=== PATIENT | male | born 1990 | race Caucasian/White ===

== ENCOUNTER 2021-11-07 18:00 | Inpatient (IN) | payer MEDICAID, SELFPAY ==
[2021-11-07 17:58] VITALS: BP 129/81; PULSE 97; RESP 17; TEMP 36.6; O2SAT 97
[2021-11-07 18:06] VITALS: BMI 23.0
--- NOTE | 2021-11-07 18:52 | PC.NURSE ---
ADMISSION NOTE ADMITTED FROM [facility]. VIA EMS, ARRIVED AT 1809 VIA STRETCHER. 96 HOUR HOLD IN PAPER WORK, STATES ITS VALID FOR 5 DAYS FROM THE 8TH OF THIS MONTH. PT. HAS A HISTORY OF SCHIZOPHRENIA AND HAS NOT BEEN TAKING ANY MEDICATIONS. HAS AN ALLERGY TO HALDOL. MOTHER BROUGHT HIM TO ER DUE TO ERRATIC/BIZARRE BEHAVIOR, YELLING AND CUSSING HIS STEP DAD. FAMILY REPORTS THEY FOUND A ROPE IN HIS ROOM HANGING AND SINCE HE HAS MADE SUICIDAL STATEMENTS IN THE PAST THEY FELT HE NEEDED EVALUATED. PT DENIES SI/HI AND AVH AT THIS TIME. STAFF REPORT HE HAS BEEN TALKING TO UNSEEN OTHERS. UPON ASSESSMENT PT IS VERY DISORGANIZED, SPEECH DELAYED AND FLIGHT OF IDEAS. UDS WAS POSITIVE FOR THC. HE DOES REPORT HE SMOKES MARIJUANA DAILY AND DRINKS EVERY NOW AND THEN COCCYX AREA PRESENTS WITH RASH WITH DRIED SCATTERD SCABS THROUGHOUT. PT STATES I'VE HAD IT SINCE I TOOK MY COVID SHOT. RECEIVED J AND J BUT UNSURE WHEN HE RECEIVED. PT IS UNABLE TO GIVE ACCURATE INFORMATION AT THIS TIME.
[2021-11-07 21:42] VITALS: BP 111/68; PULSE 96; RESP 18; TEMP 36.6; O2SAT 97
[2021-11-08 06:00] VITALS: BP 99/62; PULSE 85; RESP 16; TEMP 36.4; O2SAT 97
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
[2021-11-08] MEDS: paliperidone ER 3 mg Tablet PO (13:46)
[2021-11-08] MEDS: OLANZapine 5 mg ODT PO (18:30)
--- NOTE | 2021-11-08 18:31 | PC.NURSE ---
PRN ZYPREXA ZYDIS 5 MG GIVEN PO PER PT C/O PSYCHOSIS. PT APPEARS TO BE HALLUCINATING, LAUGHING INAPPROPRIATELY, WAVING ARMS AT TIMES TO THINGS THAT ARENT THERE. WILL SUPERVISOR STATEMENT CLERKS HIS DOORWAY HOLDING PAPER AND CALLING OUT NAMES AT RANDOM. STAFF REDIRECTS OFTEN. WILL CONT TO MONITOR
[2021-11-08 20:30] VITALS: BP 135/91; PULSE 134; RESP 17; TEMP 36.6; O2SAT 99
[2021-11-08] MEDS: hyDROXYzine 25 mg Capsule 50 MG PO (20:35)
[2021-11-08] MEDS: trazodone 50 mg Tablet PO (23:18)
[2021-11-09 06:00] VITALS: BP 108/71; PULSE 91; RESP 18; O2SAT 98
[2021-11-09] MEDS: paliperidone ER 3 mg Tablet PO ×2 (08:14→12:11)
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
[2021-11-09] MEDS: acetaminophen 325 mg Tablet 650 MG PO (12:22)
--- NOTE | 2021-11-09 13:50 | PC.NURSE ---
Patient verbalized relief from previous foot pain. Pain score 3.
[2021-11-09 14:00] VITALS: BP 114/67; PULSE 101; RESP 16; TEMP 36.6; O2SAT 98
--- NOTE | 2021-11-09 14:34 | PC.SOCIAL ---
Patient attended a portion of group. His contributions were incoherent and were more related to word association than the group discussion.
[2021-11-09 21:12] VITALS: BP 124/81; PULSE 76; RESP 16; TEMP 36.6; O2SAT 97
--- NOTE | 2021-11-09 21:26 | PC.NURSE ---
During assesmment patient stated he has not had BM and could not state when the last time he had a BM. Bowel sounds active x4, slightly distended but still soft, patient did not complain of tenderness on palpation. Offered patient stool softener and patient stated he would not take it. Patient was behaving bizarrely, staring past me while talking. When asked how he was sleeping, patient stated, I made a deal when I was young to sleep standing up. Its not uncomfortable when you are in a net cocoon. If I'm awake I'm sitting down. Then patient went to nurses station to wait on his meds, and began jumping and laughing. Patient self isolates to room except for meals and med times.
[2021-11-09] MEDS: trazodone 50 mg Tablet PO (22:07)
[2021-11-10 06:00] VITALS: BP 105/63; PULSE 100; RESP 18; TEMP 36.4; O2SAT 95
[2021-11-10] MEDS: paliperidone ER 6 mg Tablet PO (08:41)
--- NOTE | 2021-11-10 13:23 | P.NPUPN_ITS ---
Subjective NPU Subjective: He is minimally improved. There might be a slight reduction in the delay it takes for him to speak. He still seems bewildered most of the time. He says that he is sleeping well. He says that the auditory hallucinations have stopped. He says that they come and go. I asked him again about his statement yesterday about losing everything. He still could not explain any further. He had his second day of Invega 6 mg today. He denies any side effects. Mental Status Exam MSE Comments: This is a 31-year-old appropriate weight male who appears approximately his stated age and is in no distress. He was cooperative with the evaluation but had difficulty answering questions. There was a long delay sometimes and he was inconsistent with his answers. He appeared to be attending to internal stimuli. He has a full tinajero. His eye contact was good. psychomotor activity mildly increased. Speech is usually only 1 or 2 word answers to questions with no spontaneous speech. Answers are quite delayed at times. Alert, oriented Attention and concentration seem to be diminished. Memory is intact Mood is good. Affect is blunted and mildly anxious Thought process difficult to discern. There is no spontaneous speech. He answers questions with 1 or 2 words and significant delay. Thought content: Denies auditory hallucinations or visual hallucinations. No delusions or paranoia are noted. No current suicidal ideation. He denies homicidal ideation. Fund of knowledge is probably decreased. Insight and judgment appear to be poor. Impulse control is fair. Cognition: Patient Appearance: Appropriate and Disheveled/Poor Hygiene Ability to Follow Directions: Good Patient Orientation (long list): Person, Place, Time and Name Comprehension Ability: Understands Concepts Hallucination Type: None Delusion Description: Not Present Thought Process: Confused, Flight of Ideas and Incoherent Affect: Affect Description: Appropriate Behavior: Patient Behavior: Appropriate Speech Pattern: Appropriate Vitals/I&O/Wt Last Vital Signs Temp 97.5 F L 11/10/21 06:00 Pulse 100 11/10/21 06:00 Resp 18 11/10/21 06:00 BP 105/63 11/10/21 06:00 Pulse Ox 95 11/10/21 06:00 A&P Assessment and plan (1) Schizophrenia, chronic condition: Status: Acute (2) Intellectual disability: Status: Acute Plan This is a 31-year-old male who apparently has had symptoms of schizophrenia for the last 4 years and has responded well to Invega Plan: 1. We will increase Invega to 6 mg and gradually increase as tolerated. we will try and talk him into taking the Invega injection. 2. Continue every 15 minute checks for safety. 3. Encourage individual, group and milieu therapies. 4. Encourage sober living treatment after discharge at the highest level of care to which he is willing to commit. 5. We will monitor for safety for himself in the community prior to discharge. Involuntary Hold Information 96 Hour Hold: 96 Hour Involuntary Admission: Yes Attestations NPU Medical Necessity Statement*: Inpatient hospitalization is medically necessary and the clinically appropriate intervention at this time. We will initiate medications and make changes as indicated. Coding Level of Care Code Acute Aluminum Boat Inspector for Damaso Mckeon Diagnoses Schizophrenia, chronic condition F20.9 Intellectual disability F79
[2021-11-10 13:54] VITALS: BP 105/63; PULSE 100; RESP 18; TEMP 36.4; O2SAT 95
[2021-11-10 20:44] VITALS: BP 135/80; PULSE 112; RESP 19; TEMP 36.6; O2SAT 96
[2021-11-10] MEDS: trazodone 50 mg Tablet PO (21:48)
[2021-11-11 06:00] VITALS: BP 117/76; PULSE 75; RESP 16; TEMP 36.7; O2SAT 96
[2021-11-11] MEDS: paliperidone ER 6 mg Tablet PO (08:56)
[2021-11-11 14:00] VITALS: BP 145/83; PULSE 81; RESP 18; TEMP 36.6; O2SAT 100
--- NOTE | 2021-11-11 15:50 | P.NPUPN_ITS ---
Subjective NPU Subjective: He is doing significantly better. He says he is feeling better. He is having significantly less difficulty talking. He was previously talking in just 1 or 2 words at a time. Now he cannot say a sentence. His responses are much less delayed. He was told again that his mother felt that he did well when he took the Invega injection. He said that he took that for about 2 or 3 years but he was living in [place] and he was not around her and she did not have any way to know whether he was doing well with that or not. He does not want to take the injection. She also did say that he was pretty good about taking pills. He says that he does not like to take pills either. Mental Status Exam MSE Comments: This is a 31-year-old appropriate weight male who appears approximately his stated age and is in no distress. He he is still not very talkative but can say sentences now. There was a delay sometimes when answering questions but better than it was. He appeared to be attending to internal stimuli. He has a full tinajero. His eye contact was good. psychomotor activity mildly increased. Speech is usually only 1 or 2 word answers to questions but sometimes he will say a sentence. There was some spontaneous speech. Answers are less delayed than they were.. Alert, oriented Attention and concentration seem to be diminished. Memory is intact Mood is good. Affect is blunted and mildly anxious Thought process is more goal directed Thought content: Denies auditory hallucinations or visual hallucinations. No delusions or paranoia are noted. No current suicidal ideation. He denies homicidal ideation. Fund of knowledge is probably decreased. Insight and judgment appear to be poor. Impulse control is fair. Cognition: Patient Appearance: Appears Younger than Age and Disheveled/Poor Hygiene Ability to Follow Directions: Good Patient Orientation (long list): Person, Place, Time and Name Comprehension Ability: Understands Concepts Hallucination Type: None Delusion Description: Not Present Thought Process: Confused, Flight of Ideas and Incoherent Affect: Affect Description: Flat Behavior: Patient Behavior: Appropriate Speech Pattern: Appropriate Vitals/I&O/Wt Last Vital Signs Temp 97.9 F 11/11/21 14:00 Pulse 81 11/11/21 14:00 Resp 18 11/11/21 14:00 BP 145/83 11/11/21 14:00 Pulse Ox 100 11/11/21 14:00 A&P Assessment and plan (1) Schizophrenia, chronic condition: Status: Acute (2) Intellectual disability: Status: Acute Plan This is a 31-year-old male who apparently has had symptoms of schizophrenia for the last 4 years and has responded well to Invega Plan: 1. We will increase Invega to 6 mg and gradually increase as tolerated. we will try and talk him into taking the Invega injection. 2. Continue every 15 minute checks for safety. 3. Encourage individual, group and milieu therapies. 4. Encourage sober living treatment after discharge at the highest level of care to which he is willing to commit. 5. We will monitor for safety for himself in the community prior to discharge. Involuntary Hold Information 96 Hour Hold: 96 Hour Involuntary Admission: Yes Attestations NPU Medical Necessity Statement*: Inpatient hospitalization is medically necessary and the clinically appropriate intervention at this time. We will initiate medications and make changes as indicated. Coding Level of Care Code Acute Medical Assisting Program Director for Damaso Mckeon Diagnoses Schizophrenia, chronic condition F20.9 Intellectual disability F79
[2021-11-11 20:43] VITALS: BP 128/83; PULSE 97; RESP 17; TEMP 36.7; O2SAT 98
[2021-11-11] MEDS: trazodone 50 mg Tablet PO (20:45)
[2021-11-12 06:00] VITALS: BP 114/71; PULSE 69; RESP 16; TEMP 36.4; O2SAT 98
[2021-11-12] MEDS: paliperidone ER 6 mg Tablet PO (09:15)
--- NOTE | 2021-11-12 10:53 | P.NPUPN_ITS ---
Subjective NPU Subjective: He said that he is about the same as yesterday. He said that the Invega is much better than the Haldol that he was on before. He said that the doctor should have known that Invega was better for him. He said that that was part of the [place]-project which she has mentioned before. He was doing a dance in the hallway earlier today and seemed to be fairly happy. Mental Status Exam MSE Comments: This is a 31-year-old appropriate weight male who appears approximately his stated age and is in no distress. He he is still not very talkative but can say sentences now. There was a delay sometimes when answering questions but better than it was. He appeared to be attending to internal stimuli. He has a full tinajero. His eye contact was good. psychomotor activity mildly increased. Speech is usually only 1 or 2 word answers to questions but sometimes he will say a sentence. There was some spontaneous speech. Answers are less delayed than they were.. Alert, oriented Attention and concentration seem to be diminished. Memory is intact Mood is good. Affect is blunted and mildly anxious Thought process is more goal directed Thought content: Denies auditory hallucinations or visual hallucinations. No delusions or paranoia are noted. No current suicidal ideation. He denies homicidal ideation. Fund of knowledge is probably decreased. Insight and judgment appear to be poor. Impulse control is fair. Cognition: Patient Appearance: Disheveled/Poor Hygiene Ability to Follow Directions: Good Patient Orientation (long list): Person, Place, Time, Name, Month and Year Comprehension Ability: Understands Concepts Hallucination Type: None Delusion Description: Not Present Thought Process: Circumstantial and Loose Associations Affect: Affect Description: Calm Behavior: Patient Behavior: Appropriate and Cooperative Speech Pattern: Delayed and Difficulty Finding Words Vitals/I&O/Wt Last Vital Signs Temp 97.6 F 11/12/21 06:00 Pulse 69 11/12/21 06:00 Resp 16 11/12/21 06:00 BP 114/71 11/12/21 06:00 Pulse Ox 98 11/12/21 06:00 A&P Assessment and plan (1) Schizophrenia, chronic condition: Status: Acute (2) Intellectual disability: Status: Acute Plan This is a 31-year-old male who apparently has had symptoms of schizophrenia for the last 4 years and has responded well to Invega Plan: 1. We will increase Invega to 9 mg tomorrow. we will try and talk him into taking the Invega injection. 2. Continue every 15 minute checks for safety. 3. Encourage individual, group and milieu therapies. 4. Encourage sober living treatment after discharge at the highest level of care to which he is willing to commit. 5. We will monitor for safety for himself in the community prior to discharge. Involuntary Hold Information 96 Hour Hold: 96 Hour Involuntary Admission: Yes Attestations NPU Medical Necessity Statement*: Inpatient hospitalization is medically necessary and the clinically appropriate intervention at this time. We will initiate medications and make changes as indicated. Coding Level of Care Code Acute Student Life Vice President for Damaso Fwd Diagnoses Schizophrenia, chronic condition F20.9 Intellectual disability F79
[2021-11-12 14:00] VITALS: BP 123/69; PULSE 90; RESP 20; TEMP 36.6; O2SAT 99
[2021-11-12] MEDS: trazodone 50 mg Tablet PO ×2 (20:05→21:24)
[2021-11-12 20:42] VITALS: BP 126/83; PULSE 97; RESP 18; O2SAT 97
[2021-11-13 06:00] VITALS: BP 116/81; PULSE 68; RESP 18; O2SAT 97
--- NOTE | 2021-11-13 07:20 | W.PM.NPUPNS ---
Subjective NPU Subjective: He was found in bed but awake at 7:15 in the morning. He seemed to be in pain as he has tried to set up. He said that is normal for him. The nurses said he slept well but he says that it was not that good. Even at this time in the morning he was able to make sentences and somewhat talkative. I asked him if he was going to live with his mother when he left here. He hesitated and said I think so. I asked where else he would go and he hesitated and said wherever it is . Mental Status Exam MSE Comments: This is a 31-year-old appropriate weight male who appears approximately his stated age and is in no distress. He he is still not very talkative but can say sentences now. There was a delay sometimes when answering questions but better than it was. He appeared to be attending to internal stimuli. He appears to be bewildered at times. He has a full tinajero. His eye contact was good. psychomotor activity normal. Speech is usually only 1 or 2 word answers to questions but sometimes he will say a sentence. There was some spontaneous speech. Answers are less delayed than they were.. Alert, oriented Attention and concentration seem to be diminished. Memory is intact Mood is good. Affect is blunted and mildly anxious Thought process is more goal directed Thought content: Denies auditory hallucinations or visual hallucinations. No delusions or paranoia are noted. No current suicidal ideation. He denies homicidal ideation. Fund of knowledge is probably decreased. Insight and judgment appear to be poor. Impulse control is fair. Cognition: Patient Appearance: Disheveled/Poor Hygiene Ability to Follow Directions: Good Patient Orientation (long list): Person, Place, Time, Name, Month and Year Comprehension Ability: Understands Concepts Hallucination Type: None Delusion Description: Not Present Thought Process: Disorganized Affect: Affect Description: Calm Behavior: Patient Behavior: Appropriate Speech Pattern: Delayed and Difficulty Finding Words Vitals/I&O/Wt Last Vital Signs Temp 98 F 11/12/21 14:00 Pulse 68 11/13/21 06:00 Resp 18 11/13/21 06:00 BP 116/81 11/13/21 06:00 Pulse Ox 97 11/13/21 06:00 A&P Assessment and plan (1) Schizophrenia, chronic condition: Status: Acute (2) Intellectual disability: Status: Acute Plan This is a 31-year-old male who apparently has had symptoms of schizophrenia for the last 4 years and has responded well to Invega Plan: 1. We will increase Invega to 9 mg tomorrow. we will try and talk him into taking the Invega injection. 2. Continue every 15 minute checks for safety. 3. Encourage individual, group and milieu therapies. 4. Encourage sober living treatment after discharge at the highest level of care to which he is willing to commit. 5. We will monitor for safety for himself in the community prior to discharge. Involuntary Hold Information 96 Hour Hold: 96 Hour Involuntary Admission: Yes Attestations NPU Medical Necessity Statement*: Inpatient hospitalization is medically necessary and the clinically appropriate intervention at this time. We will initiate medications and make changes as indicated. Coding Level of Care Code Acute Manager Of Planning for Damaso Mckeon Diagnoses Schizophrenia, chronic condition F20.9 Intellectual disability F79
[2021-11-13] MEDS: paliperidone ER 3 mg Tablet 9 MG PO (10:11)
--- NOTE | 2021-11-13 10:14 | PC.NURSE ---
3mg PO of Invega given to patient at this time to increase dose from 6 to 9mg.
[2021-11-13 14:00] VITALS: BP 113/73; PULSE 78; RESP 20; TEMP 37.2; O2SAT 99
[2021-11-13] MEDS: trazodone 50 mg Tablet PO (21:00)
[2021-11-13 22:00] VITALS: BP 119/76; PULSE 78; RESP 18; TEMP 36.6; O2SAT 99
[2021-11-14 06:00] VITALS: BP 106/70; PULSE 66; RESP 18; TEMP 36.6; O2SAT 99; BMI 23.0
--- NOTE | 2021-11-14 07:07 | P.NPUPN_ITS ---
Subjective NPU Subjective: He was seen walking in the halls at 7 AM. He says that he still woke up sore this morning. He wonders if it is all the lifting that he has done. He says that he feels like he is significantly better. His brain seems like it is working better. He is more able to talk in complete sentences. He promises to take his medication when he goes home. He he said he did that last time. He is going home with his mother and she should be helpful in making sure that he continues taking his medication. Mental Status Exam MSE Comments: This is a 31-year-old appropriate weight male who appears approximately his stated age and is in no distress. He is more talkative now. Talking in complete sentences. There was no significant delay in answering questions today. He has a full tinajero. His eye contact was good. psychomotor activity normal. Speech is in complete sentences today. There was some spontaneous speech. There is no delay in answering questions today. Alert, oriented Attention and concentration seem to be diminished. Memory is intact Mood is good. Affect is blunted. Thought process is more goal directed Thought content: Denies auditory hallucinations or visual hallucinations. No delusions or paranoia are noted. No current suicidal ideation. He denies homicidal ideation. Fund of knowledge is probably decreased. Insight and judgment appear to be poor. Impulse control is fair. Cognition: Patient Appearance: Disheveled/Poor Hygiene Ability to Follow Directions: Good Patient Orientation (long list): Person, Time, Name, Birthday, Month and Year Comprehension Ability: Understands Concepts Hallucination Type: None Delusion Description: Not Present Thought Process: Disorganized and Flight of Ideas Behavior: Patient Behavior: Appropriate Speech Pattern: Appropriate Vitals/I&O/Wt Last Vital Signs Temp 97.9 F 11/14/21 06:00 Pulse 66 11/14/21 06:00 Resp 18 11/14/21 06:00 BP 106/70 11/14/21 06:00 Pulse Ox 99 11/14/21 06:00 Weight last 48 hrs Weight 66.678 kg A&P Assessment and plan (1) Schizophrenia, chronic condition: Status: Acute (2) Intellectual disability: Status: Acute Plan This is a 31-year-old male who apparently has had symptoms of schizophrenia for the last 4 years and has responded well to Invega Plan: 1. increase Invega to 9 mg. Today will be the second day at that dose. We will try and talk him into taking the Invega injection. 2. Continue every 15 minute checks for safety. 3. Encourage individual, group and milieu therapies. 4. Encourage sober living treatment after discharge at the highest level of care to which he is willing to commit. 5. We will monitor for safety for himself in the community prior to discharge. Involuntary Hold Information 96 Hour Hold: 96 Hour Involuntary Admission: Yes Attestations NPU Medical Necessity Statement*: Inpatient hospitalization is medically necessary and the clinically appropriate intervention at this time. We will initiate medications and make changes as indicated. Coding Level of Care Code Acute Production Support Engineer for Damaso Fwlaly Diagnoses Schizophrenia, chronic condition F20.9 Intellectual disability F79
[2021-11-14] MEDS: paliperidone ER 3 mg Tablet 9 MG PO (09:06)
[2021-11-14 13:45] VITALS: BP 110/70; PULSE 83; RESP 17; TEMP 36.8; O2SAT 98
[2021-11-14] MEDS: trazodone 50 mg Tablet PO (20:52)
[2021-11-14 22:00] VITALS: BP 115/66; PULSE 82; RESP 16; TEMP 36; O2SAT 99
[2021-11-15 06:00] VITALS: BP 104/65; PULSE 80; RESP 18; TEMP 36.4; O2SAT 99
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
[2021-11-15] MEDS: paliperidone ER 3 mg Tablet 9 MG PO (08:10)
[2021-11-15 10:24] VITALS: BP 104/65; PULSE 80; RESP 18; TEMP 36.4; O2SAT 99
--- NOTE | 2021-11-15 15:38 | PC.NURSE ---
DISCHARGE NOTE DISCHARGE TEACHING COMPLETED. MEDICATIONS SENT VIA MEDS TO BED AND ACCOMPANIED BY PT. LEFT WITH MOTHER VIA POV. REVIEWED ALL APPOINTMENTS. ALL QUESTIONS ANSWERED AND SUPPORT VOICED. VSS. DENIES PAIN. DENIES SI/HI AND AVH AT THIS TIME. LEFT NPU AT 1541
== END 2021-11-15 15:41 | disposition home or self-care (01) | DRG 885 ==
PROVIDERS: Admitting Provider Psychiatry & Neurology Psychiatry; Visit Provider Psychiatry & Neurology Psychiatry
DX: F20.9 Schizophrenia, unspecified (principal); F12.90 Cannabis use, unspecified, uncomplicated; F79 Unspecified intellectual disabilities; R45.850 Homicidal ideations
CPT/HCPCS: 97150; 97165